=== PATIENT | male | born 1995 | race Native Hawaiian/Other Pacific Islander ===

== ENCOUNTER 2025-01-06 00:01 | Emergency (ER) | payer SELFPAY ==
[2025-01-07] MEDS: Alum Hydroxide/Mag Hydroxide 15 ML, Lidocaine 2% 15 ML PO ONE (00:16)
[2025-01-07 00:21] LABS: BLOOD UREA NITROGEN,BUN 11 mg/dL (7-18); CARBON DIOXIDE,CO2 30 mmol/L (21-32); CHLORIDE,CL 98 mmol/L (100-110); CREATININE 1.0 mg/dL (0.70-1.30); ESTIMATED GFR 104 mL/min (>60); GLUCOSE RANDOM 153 mg/dL (80-116); POTASSIUM,K 3.4 mmol/L (3.5-5.3); SODIUM,NA 137 mmol/L (135-145)
[2025-01-07 00:22] LABS: BASOPHILS ABSOLUTE AUTO 0.0 x10-3/uL (0.0-0.3); BASOPHILS PERCENT AUTO 0.2 % (0.3-3.8); EOSINOPHILS ABSOLUTE AUTO 0.6 x10-3/uL (0.0-0.6); EOSINOPHILS PERCENT AUTO 5.3 % (0.1-6.8); LYMPHOCYTES ABSOLUTE AUTO 1.6 x10-3/uL (0.5-4.5); LYMPHOCYTES PERCENT AUTO 15.6 % (15.8-45.3); MEAN PLATELET VOLUME 8.0 fL (6.7-11.0); MONOCYTES ABSOLUTE AUTO 0.8 x10-3/uL (0.0-1.2); MONOCYTES PERCENT AUTO 7.2 % (5.5-15.2); NEUTROPHILS ABSOLUTE AUTO 7.6 x10-3/uL (1.7-6.9); NEUTROPHILS PERCENT AUTO 71.7 % (40.3-71.8); PLATELET COUNT,PLT 330 x10(3)uL (117-477); RED BLOOD CELL COUNT 5.57 x10(6)uL (3.90-5.90); RED CELL DISTRIBUTION WIDTH 14.1 % (12.4-15.0); WHITE BLOOD CELL COUNT,WBC 10.6 x10-3/uL (3.2-10.1)
[2025-01-07 01:06] LABS: AMPHETAMINES SCREEN, URINE POSITIVE (NEGATIVE); METHADONE SCREEN, URINE NEGATIVE (NEGATIVE); METHAMPHETAMINE SCREEN, URINE POSITIVE (NEGATIVE); OXYCODONE SCREEN,URINE NEGATIVE (NEGATIVE)
[2025-01-07 01:07] LABS: BUPRENORPHINE SCREEN,URINE NEGATIVE (NEGATIVE)
== END 2025-01-07 01:16 | disposition home or self-care (01) ==
LOC: FB.ED 00:01
DX: R07.89 Other chest pain (principal); Z88.6 Allergy status to analgesic agent; Z88.8 Allergy status to other drugs, medicaments and biological substances
CPT/HCPCS: 36415; 80048; 80307; 84484; 85025; 93005; 99285; A9270